=== PATIENT | female | born 1995 | race Caucasian/White ===

== ENCOUNTER → 2018-01-16 | Outpatient (CLI) | payer BC ==
[~2018-01-16] MED LIST: AMPH20TA2 PO; BCPILLS PO; SPIR25TA5 PO
--- NOTE | 2018-01-16 12:00 | DIAGNOSTIC IMAGING REPORT ---
THYROID ULTRASOUND HISTORY: ENLARGED THYROID COMPARISON: None. FINDINGS: Right lobe: 3.4 x 1.1 x 1.0 cm. No nodules. Left lobe: 3.2 x 1.1 x 0.8 cm. No nodules. Isthmus: 0.2 cm in thickness. No nodules. IMPRESSION: Normal thyroid ultrasound. Electronically signed by: Edgard Asif M.D. 01/16/2018 11:59 AM Dictated Date/Time: 01/16/2018 11:58 AM
== END | disposition home or self-care (01) ==
LOC: C.ULTR 10:56
PROVIDERS: ATTEND Nurse Practitioner
DX: E04.9 Nontoxic goiter, unspecified (principal)